=== PATIENT | female | born 1970 | race Caucasian/White ===

== ENCOUNTER 2018-02-14 14:30 | Emergency (ER) | payer OTHER ==
[2018-02-14 17:12] LABS: ADD UMIC YES; UR ASCORBIC ACID NEGATIVE (NEGATIVE); UR BACTERIA FEW /HPF (NONE SEEN); UR BILIRUBIN (Dip) NEGATIVE (NEGATIVE); UR BLOOD (Dip) NEGATIVE (NEGATIVE); UR CLARITY CLEAR (CLEAR); UR COLOR STRAW (YELLOW); UR GLUCOSE (Dip) NEGATIVE (NEGATIVE); UR KETONES (Dip) NEGATIVE (NEGATIVE); UR LEUKOCYTE ESTERASE (Dip) 1+ Leu/ul (NEGATIVE); UR NITRITE (Dip) NEGATIVE (NEGATIVE); UR RBC 1 /HPF (0-5); UR SPECIFIC GRAVITY (Dip) 1.005 (1.003-1.030); UR TOTAL PROTEIN (Dip) NEGATIVE (NEGATIVE); UR UROBILINOGEN (Dip) NEGATIVE (NEGATIVE); UR WBC 40 /HPF (0-5)
[2018-02-14] MEDS: AZITHROMYCIN 250 MG TAB PO (17:27)
[2018-02-14] MEDS: FLUCONAZOLE 150 MG TAB PO (17:27)
[2018-02-14] MEDS: LIDOCAINE 1% (MPF) 5 ML VIAL INJ (17:27)
[2018-02-14] MEDS: CEFTRIAXONE 500 MG INJ IM (17:28)
== END 2018-02-14 19:07 | disposition home or self-care (01) ==
LOC: FTE 14:30
DX: R30.0 Dysuria (principal)
CPT/HCPCS: 81001; 87086; 87210; 87591; 96372; 99284-25

== ENCOUNTER 2018-05-17 10:20 | Emergency (ER) | payer OTHER ==
[2018-05-17 14:36] LABS: ADD MAN DIFF? NO
[2018-05-17 14:41] LABS: WHITE BLOOD COUNT 8.5 10^3/ul (4.8-10.8)
[2018-05-17 14:41] LABS: BASOPHIL # 0.1 10^3/ul (0.0-0.1); BASOPHILS % 0.6 % (0.0-2.0); EOSINOPHILS # 0.2 10^3/ul (0.0-0.5); EOSINOPHILS % 2.8 % (0.0-7.0); HEMATOCRIT 38.4 % (37.0-47.0); HEMOGLOBIN 12.1 g/dl (12.0-16.0); LYMPHOCYTES # 1.3 10^3/ul (0.8-2.9); LYMPHOCYTES % 14.8 % (15.0-51.0); MEAN CORPUSCULAR HEMOGLOBIN 28.6 pg (29.0-33.0); MEAN CORPUSCULAR HGB CONC 31.5 g/dl (32.0-37.0); MEAN CORPUSCULAR VOLUME 90.8 fl (82.0-101.0); MEAN PLATELET VOLUME 10.3 fl (7.4-10.4); MONOCYTE # 0.7 10^3/ul (0.3-0.9); MONOCYTES % 8.5 % (0.0-11.0); NEUTROPHIL # 6.2 10^3/ul (1.6-7.5); NEUTROPHILS % 72.8 % (39.0-77.0); PLATELET COUNT 229 10^3/UL (140-415); RED BLOOD COUNT 4.23 10^6/ul (4.20-5.40); RED CELL DISTRIBUTION WIDTH 12.8 % (11.5-14.5)
[2018-05-17 14:58] LABS: ANION GAP 7 (5-13); BLOOD UREA NITROGEN 11 mg/dl (7-20); CALCIUM 9.1 mg/dl (8.4-10.2); CARBON DIOXIDE 26 mmol/L (21-31); CHLORIDE 105 mmol/L (97-110); CREATININE 0.52 mg/dl (0.44-1.00); Estimated GFR > 60 mL/min (>60); GLUCOSE 109 mg/dl (70-220); SODIUM 138 mmol/L (135-144)
[2018-05-17 15:10] LABS: TROPONIN-I < 0.012 ng/ml (0.000-0.120)
[2018-05-17 15:41] LABS: FREE T4 (FREE THYROXINE) 1.17 ng/dl (0.64-1.79)
== END 2018-05-17 16:33 | disposition home or self-care (01) ==
LOC: E/R 10:20
DX: R00.2 Palpitations (principal)
CPT/HCPCS: 71045; 80048; 84439; 84443; 84484; 85025; 93005; 99285-25